=== PATIENT | female | born 1955 | race Hispanic/Latino ===

== ENCOUNTER 2016-12-11 08:59 | Day surgery (SDC) | payer BC ==
[2016-12-11] MEDS ORDERED: Sodium Chloride 0.9% 1,000 ML IV ONE (09:36)
--- NOTE | 2016-12-11 09:47 | C.PDOC ---
History Of Present Illness <Alda Hdz - Last Filed: 12/11/16 12:00> <Bina Vigil - Last Filed: 12/11/16 15:44> 61 y/o female with PMHx of HTN and HLD sent to ED by Dr. Richardson for pre-op labs. Patient is scheduled in OR today for hemorrhoids removal. At ED patient is complaining of hemorrhoids being painful last night and was unable to sleep.. Patient denies fever, chills, nausea or any other complaints at this time. (Alda Hdz) History Per: Patient History/Exam Limitations: no limitations Onset/Duration Of Symptoms: Days Current Symptoms Are (Timing): Still Present <Alda Hdz - Last Filed: 12/11/16 12:00> <Bina Vigil - Last Filed: 12/11/16 15:44> Time Seen by Provider: 12/11/16 09:08 Chief Complaint (Nursing): Medical Clearance Past Medical History Reviewed: Historical Data, Nursing Documentation, Vital Signs - Medical History PMH: Diverticulitis, Hiatal Hernia, HTN, Hypercholesterolemia Surgical History: No Surg Hx Family History: States: No Known Family Hx - Social History Hx Tobacco Use: No Hx Alcohol Use: Yes Hx Substance Use: No - Immunization History Hx Tetanus Toxoid Vaccination: No Hx Influenza Vaccination: No Hx Pneumococcal Vaccination: No <Alda Hdz - Last Filed: 12/11/16 12:00> Vital Signs: Last Vital Signs Temp 97.9 F 12/11/16 10:12 Pulse 72 12/11/16 10:12 Resp 18 12/11/16 10:12 BP 120/80 12/11/16 10:12 Pulse Ox 98 12/11/16 12:02 - [facility] Procedures NAIL REMOVAL (07/27/14) Review Of Systems Constitutional: Negative for: Fever, Chills Gastrointestinal: Positive for: Rectal Pain. Negative for: Nausea, Vomiting, Abdominal Pain Musculoskeletal: Negative for: Back Pain Skin: Negative for: Rash <Alda Hdz - Last Filed: 12/11/16 12:00> Physical Exam - Physical Exam Appears: Non-toxic, No Acute Distress Skin: Normal Color, Warm, Dry, No Rash Head: Atraumatic, Normacephalic Oral Mucosa: Moist Neck: Normal ROM, Supple Cardiovascular: Rhythm Regular Respiratory: Normal Breath Sounds, No Rales, No Rhonchi, No Wheezing Gastrointestinal/Abdominal: Soft, No Tenderness, No Guarding, No Rebound Rectal: Hemorrhoids (Large), Tenderness (to large hemorrhoids) Back: No CVA Tenderness Neurological/Psych: Oriented x3 <Alda Hdz - Last Filed: 12/11/16 12:00> ED Course And Treatment - Laboratory Results Result Diagrams: 12/11/16 09:58 12/11/16 09:58 Lab Interpretation: Normal ECG: Interpreted By Me ECG Rhythm: Sinus Rhythm ECG Interpretation: Normal Rate From EC O2 Sat by Pulse Oximetry: 98 (RA) Pulse Ox Interpretation: Normal - Radiology CXR: Interpreted by Md CXR Interpretation: Yes: No Acute Disease Progress Note: Treated with IVF NSS. Case discussed with Dr Flores who requests admission Reassessment Condition: Unchanged - Physician Consult Information Physician Contacted: Manpreet Richardson Outcome Of Conversation: admit to OR <Alda Hdz - Last Filed: 12/11/16 12:00> - Laboratory Results Result Diagrams: 12/11/16 09:58 12/11/16 09:58 <Bina Vigil - Last Filed: 12/11/16 15:44> Medical Decision Making <Alda Hdz - Last Filed: 12/11/16 12:00> <Bina Vigil - Last Filed: 12/11/16 15:44> Medical Decision Making: Plan: Pre-op labs (Alda Hdz) Disposition - Disposition Disposition Time: 11:00 - POA Present On Arrival: None <Alda Hdz - Last Filed: 12/11/16 12:00> <Bina Vigil - Last Filed: 12/11/16 15:44> - Disposition Disposition: HOSPITALIZED Condition: STABLE - Clinical Impression Clinical Impression: Hemorrhoids, external, thrombosed - PA / TREKKING GUIDE / Resident Statement MD/DO has reviewed & agrees with the documentation as recorded. - Scribe Statement The provider has reviewed the documentation as recorded by the Scribe <Alda Hdz - Last Filed: 12/11/16 12:00> <Bina Vigil - Last Filed: 12/11/16 15:44> - Scribe Statement Yadira Schwartz All medical record entries made by the Scribe were at my direction and personally dictated by me. I have reviewed the chart and agree that the record accurately reflects my personal performance of the history, physical exam, medical decision making, and the department course for this patient. I have also personally directed, reviewed, and agree with the discharge instructions and disposition. (Alda Hdz) Decision To Admit - Pt Status Changed To: Hospital Disposition Of: SDS- Endo,OR,Cath,IR - . Bed Request Type: Same Day Surgery Admitting Physician: Manpreet Richardson <Alda Hdz - Last Filed: 12/11/16 12:00> <Bina Vigil - Last Filed: 12/11/16 15:44> - . Patient Diagnosis: Hemorrhoids, external, thrombosed
[2016-12-11] MEDS ORDERED: Sodium Chloride 0.9% 1,000 ML ONE (09:56)
[2016-12-11 10:06] LABS: BASO % 0.5 % (0.0-2.0); EOS # 0.1 K/uL (0.0-0.7); EOS % 1.4 % (0.0-4.0); HEMATOCRIT 41.8 % (34.0-47.0); LYMPH # 2.5 K/uL (1.0-4.3); LYMPH % 29.7 % (20.0-40.0); MEAN CORPUSCULAR HGB CONC 34.1 g/dL (33.0-37.0); MEAN PLATELET VOLUME 8.2 fL (7.2-11.7); MONO # 0.8 K/uL (0.0-0.8); MONO % 9.5 % (0.0-10.0); WHITE BLOOD COUNT 8.4 K/uL (4.8-10.8)
[2016-12-11 10:21] LABS: CHLORIDE 102 mmol/L (98-107); POTASSIUM 3.4 mmol/L (3.6-5.2); SODIUM 136 mmol/L (132-148)
[2016-12-11 10:23] LABS: GFR AFRICAN-AMERICAN > 60
[2016-12-11 10:24] LABS: ALB/GLOB RATIO 1.3 (1.0-2.1); ALKALINE PHOSPHATASE 71 U/L (38-126); ALT/SGPT 23 U/L (9-52); AST/SGOT 23 U/L (14-36); BILIRUBIN,TOTAL 0.8 mg/dL (0.2-1.3); BLOOD UREA NITROGEN 15 mg/dL (7-17); CALCIUM 9.6 mg/dl (8.6-10.4); CARBON DIOXIDE 22 mmol/L (22-30); GLUCOSE,RANDOM 102 mg/dL (65-105); TOTAL PROTEIN 7.9 g/dL (6.3-8.3)
--- NOTE | 2016-12-11 10:24 | RAD ---
HISTORY: SOB COMPARISON: Chest x-ray portion of obstructive series performed 10/10/13 TECHNIQUE: Chest PA and lateral FINDINGS: Examination limited by habitus. LUNGS: Biapical pleural thickening. Mild left basilar atelectasis/ infiltrates. Subsegmental right basilar atelectasis. Please note that chest x-ray has limited sensitivity for the detection of pulmonary masses. PLEURA: No significant pleural effusion identified. No definite pneumothorax . CARDIOVASCULAR: Heart size appears top normal. Atherosclerotic calcifications of the aorta. OSSEOUS STRUCTURES: Degenerative changes. VISUALIZED UPPER ABDOMEN: Unremarkable. OTHER FINDINGS: None. IMPRESSION: Biapical pleural thickening. Mild left basilar atelectasis/ infiltrates. Subsegmental right basilar atelectasis.
[2016-12-11 13:45] LABS: RBC URINE 9 /hpf (0-3); URINE BACTERIA RARE (<OCC); URINE BILIRUBIN NEGATIVE (NEGATIVE); URINE BLOOD 1+ (NEGATIVE); URINE COLOR Yellow (YELLOW); URINE GLUCOSE (UA) NORMAL (Normal); URINE KETONE TRACE mg/dL (NEGATIVE); URINE LEUKOCYTE ESTERASE 1+ Leu/uL (Negative); URINE PROTEIN NEGATIVE (NEGATIVE); URINE UROBILINOGEN NORMAL mg/dL (0.2-1.0); WBC URINE 12 /hpf (0-5)
--- NOTE | 2016-12-11 14:01 | CP.PCM.HP ---
<MusaBina - Last Filed: 12/11/16 14:59> Present on Admission - Present on Admission Any Indicators Present on Admission: No Meds Allergies/Adverse Reactions: Allergies Allergy/AdvReac Type Severity Reaction Status Date / Time ciprofloxacin [From Cipro] Allergy Verified 12/11/16 09:02 Results - Vital Signs Recent Vital Signs: Last Vital Signs Temp 97.9 F 12/11/16 10:12 Pulse 72 12/11/16 10:12 Resp 18 12/11/16 10:12 BP 120/80 12/11/16 10:12 Pulse Ox 98 12/11/16 12:02 - Labs Result Diagrams: 12/11/16 09:58 12/11/16 09:58 Labs: Laboratory Results - last 24 hr 12/11/16 12/11/16 12/11/16 09:58 09:58 09:58 WBC 8.4 RBC 4.92 Hgb 14.3 Hct 41.8 MCV 85.0 MCH 29.0 MCHC 34.1 RDW 14.0 Plt Count 272 MPV 8.2 Neut % (Auto) 58.9 Lymph % (Auto) 29.7 Ford % (Auto) 9.5 Eos % (Auto) 1.4 Baso % (Auto) 0.5 Neut # 4.9 Lymph # 2.5 Ford # 0.8 Eos # 0.1 Baso # 0.0 PT 11.0 INR 1.0 Sodium 136 Potassium 3.4 L Chloride 102 Carbon Dioxide 22 Anion Gap 15 BUN 15 Creatinine 0.7 Est GFR ( Amer) > 60 Est GFR (Non-Af Amer) > 60 Random Glucose 102 Calcium 9.6 Total Bilirubin 0.8 AST 23 ALT 23 Alkaline Phosphatase 71 Total Protein 7.9 Albumin 4.5 Globulin 3.4 Albumin/Globulin Ratio 1.3 Urine Color Urine Clarity Urine pH Ur Specific [place] Urine Protein Urine Glucose (UA) Urine Ketones Urine Blood Urine Nitrate Urine Bilirubin Urine Urobilinogen Ur Leukocyte Esterase Urine WBC (Auto) Urine RBC (Auto) Ur Squamous Epith Cells Urine Bacteria Blood Type Antibody Screen 12/11/16 12/11/16 09:58 13:10 WBC RBC Hgb Hct MCV MCH MCHC RDW Plt Count MPV Neut % (Auto) Lymph % (Auto) Ford % (Auto) Eos % (Auto) Baso % (Auto) Neut # Lymph # Ford # Eos # Baso # PT INR Sodium Potassium Chloride Carbon Dioxide Anion Gap BUN Creatinine Est GFR ( Amer) Est GFR (Non-Af Amer) Random Glucose Calcium Total Bilirubin AST ALT Alkaline Phosphatase Total Protein Albumin Globulin Albumin/Globulin Ratio Urine Color Yellow Urine Clarity Hazy Urine pH 5.0 Ur Specific [place] 1.016 Urine Protein Negative Urine Glucose (UA) Normal Urine Ketones Trace Urine Blood 1+ H Urine Nitrate Negative Urine Bilirubin Negative Urine Urobilinogen Normal Ur Leukocyte Esterase 1+ H Urine WBC (Auto) 12 H Urine RBC (Auto) 9 H Ur Squamous Epith Cells 1 Urine Bacteria Rare Blood Type B POSITIVE Antibody Screen Negative Decision To Admit - Pt Status Changed To: Hospital Disposition Of: SDS- Endo,OR,Cath,IR - . Bed Request Type: Regular <Sheila Moise - Last Filed: 12/11/16 15:23> History of Present Illness - History of Present Illness History of Present Illness: "CC: my hemorrhoids are throbbing" HPI: Patient is a 61 year old Female with pmhx of HTN, HLD, diverticulitis who presents today for painful hemorrhoids. Patient says she was told she had internal and external hemorrhoids about 4 years ago when she had a colonoscopy, but had no complaints until this past week. On Friday patient started to have a lot of throbbing and pain from her hemorrhoids. She also noticed some bright red blood on the toilet paper after her bowel movements. She went to the ED Friday morning at [facility] [place] where she was given some cream and told to follow up with her primary doctor. She called her primary, Dr. Carr who gave her Dr. Richardson's information. Patient went for an appointment with Dr. Richardson yesterday. Patient was instructed to take sitz baths and use a stool softener and if no relief have a hemorrhoidectomy next week. Patient was having severe discomfort (10/) overnight and contacted Dr. Richardson who told her to come in for the hemorrhoidectomy today. Currently patient says she is still having some pain/ discomfort. Patient denies any chills, fevers, headache, shortness of breath, chest pain, abdominal pain, or urinary frequency/ dysuria. PMD: Dr. Carr PMhx: HTN, HLD, Diverticulitis Psurg: L ankle surgery ~ 2011; 30 years ago Social: no tobacco or drugs, drinks about 1 alcoholic drink per week Allergies: cipro- hallucinations Famhx: mom: heart disease, HTN; sister: from lung CA; father: emphysema Home Meds: unknown doses of simvastatin, nexium, ACEI for her htn, fish oil, probiotic Review of Systems - Constitutional Constitutional: absent: Chills, Fever, Headache - EENT Eyes: absent: Blurred Vision Nose/Mouth/Throat: absent: Sore Throat - Cardiovascular Cardiovascular: absent: Chest Pain, Claudication, Dyspnea, Edema, Palpitations - Respiratory Respiratory: absent: Cough - Gastrointestinal Gastrointestinal: Hematochezia, Loose Stools. absent: Abdominal Pain, Constipation - Genitourinary Genitourinary: absent: Difficulty Urinating - Musculoskeletal Musculoskeletal: absent: Muscle Weakness - Neurological Neurological: absent: Dizziness, Headaches - Hematologic/Lymphatic Hematologic: absent: Easy Bleeding, Easy Bruising Past Patient History - Past Social History Smoking Status: Never Smoked - CARDIAC Hx Hypercholesterolemia: Yes Hx Hypertension: Yes - GASTROINTESTINAL Hx Diverticulitis: Yes - PSYCHIATRIC Hx Substance Use: No - SURGICAL HISTORY Hx Surgeries: Yes Hx Orthopedic Surgery: Yes (ANKLE SX) - ANESTHESIA Hx Anesthesia: Yes Hx Anesthesia Reactions: No Physical Exam - Constitutional Appears: Non-toxic, No Acute Distress - Head Exam Head Exam: ATRAUMATIC, NORMAL INSPECTION, NORMOCEPHALIC - Eye Exam Eye Exam: EOMI, Normal appearance - ENT Exam ENT Exam: Mucous Membranes Moist - Respiratory Exam Respiratory Exam: Clear to Auscultation Bilateral, NORMAL BREATHING PATTERN. absent: Respiratory Distress - Cardiovascular Exam Cardiovascular Exam: REGULAR RHYTHM, +S1, +S2 - GI/Abdominal Exam GI & Abdominal Exam: Normal Bowel Sounds, Soft. absent: Distended, Firm, Tenderness - Extremities Exam Extremities exam: Positive for: normal inspection. Negative for: pedal edema, tenderness - Neurological Exam Neurological exam: Alert, Oriented x3 - Psychiatric Exam Psychiatric exam: Normal Affect, Normal Mood - Skin Skin Exam: Intact, Normal Color, Warm Results - Vital Signs Recent Vital Signs: Last Vital Signs Temp 97.9 F 12/11/16 10:12 Pulse 72 12/11/16 10:12 Resp 18 12/11/16 10:12 BP 120/80 12/11/16 10:12 Pulse Ox 98 12/11/16 12:02 - Labs Result Diagrams: 12/11/16 09:58 12/11/16 09:58 Labs: Laboratory Results - last 24 hr 12/11/16 12/11/16 12/11/16 09:58 09:58 09:58 WBC 8.4 RBC 4.92 Hgb 14.3 Hct 41.8 MCV 85.0 MCH 29.0 MCHC 34.1 RDW 14.0 Plt Count 272 MPV 8.2 Neut % (Auto) 58.9 Lymph % (Auto) 29.7 Ford % (Auto) 9.5 Eos % (Auto) 1.4 Baso % (Auto) 0.5 Neut # 4.9 Lymph # 2.5 Ford # 0.8 Eos # 0.1 Baso # 0.0 PT 11.0 INR 1.0 Sodium 136 Potassium 3.4 L Chloride 102 Carbon Dioxide 22 Anion Gap 15 BUN 15 Creatinine 0.7 Est GFR ( Amer) > 60 Est GFR (Non-Af Amer) > 60 Random Glucose 102 Calcium 9.6 Total Bilirubin 0.8 AST 23 ALT 23 Alkaline Phosphatase 71 Total Protein 7.9 Albumin 4.5 Globulin 3.4 Albumin/Globulin Ratio 1.3 Urine Color Urine Clarity Urine pH Ur Specific [place] Urine Protein Urine Glucose (UA) Urine Ketones Urine Blood Urine Nitrate Urine Bilirubin Urine Urobilinogen Ur Leukocyte Esterase Urine WBC (Auto) Urine RBC (Auto) Ur Squamous Epith Cells Urine Bacteria Blood Type Antibody Screen 12/11/16 12/11/16 09:58 13:10 WBC RBC Hgb Hct MCV MCH MCHC RDW Plt Count MPV Neut % (Auto) Lymph % (Auto) Ford % (Auto) Eos % (Auto) Baso % (Auto) Neut # Lymph # Ford # Eos # Baso # PT INR Sodium Potassium Chloride Carbon Dioxide Anion Gap BUN Creatinine Est GFR ( Amer) Est GFR (Non-Af Amer) Random Glucose Calcium Total Bilirubin AST ALT Alkaline Phosphatase Total Protein Albumin Globulin Albumin/Globulin Ratio Urine Color Yellow Urine Clarity Hazy Urine pH 5.0 Ur Specific [place] 1.016 Urine Protein Negative Urine Glucose (UA) Normal Urine Ketones Trace Urine Blood 1+ H Urine Nitrate Negative Urine Bilirubin Negative Urine Urobilinogen Normal Ur Leukocyte Esterase 1+ H Urine WBC (Auto) 12 H Urine RBC (Auto) 9 H Ur Squamous Epith Cells 1 Urine Bacteria Rare Blood Type B POSITIVE Antibody Screen Negative Assessment & Plan - Assessment and Plan (Free Text) Assessment: 61 y/o female with pmhx of HTN, HLD, diverticulitis presents for hemorrhoidectomy Plan: -OR today 12/[address] Richardson -NPO case discussed with Dr. Richardson <Manpreet Richardson - Last Filed: 12/12/16 21:11> Results - Vital Signs Recent Vital Signs: Last Vital Signs Temp 98.2 F 12/12/16 15:14 Pulse 77 12/12/16 15:14 Resp 20 12/12/16 15:14 BP 115/65 12/12/16 15:14 Pulse Ox 96 12/12/16 15:14 - Labs Result Diagrams: 12/11/16 09:58 12/11/16 09:58 Attending/Attestation - Attestation I have personally seen and examined this patient.: Yes I have fully participated in the care of the patient.: Yes I have reviewed all pertinent clinical information: Yes Notes (Text): 12/12/16 21:10 Pt was seen and examined at bedside Agree with above note and assessment Pt with prolapsed hemorrhoid with thrombosis and ulceration OR for Hemorrhoidectomy Consent NPO, IVF Plan d.w pt in detail Risk and benefit explained in detail.
[2016-12-11] MEDS ORDERED: Midazolam 2 MG/2 ML VIAL ONE (16:25)
[2016-12-11] MEDS ORDERED: Rocuronium 10 mg/ml (5 ml) ONE (16:26)
[2016-12-11] MEDS ORDERED: Succinylcholine Chloride 20 mg/ml Syr (5 ml) IV ONE (16:26)
[2016-12-11] MEDS ORDERED: Propofol 10 mg/ml Inj (20 ML) ONE (16:28)
[2016-12-11] MEDS ORDERED: Lactated Ringer's 1,000 ML IV ONE ×2 (17:00→19:00)
[2016-12-11] MEDS ORDERED: metroNIDAZOLE IV 500 mg/100 ml 500 MG/100 ML BAG ONE (17:11)
[2016-12-11] MEDS ORDERED: Bupivacaine-Epi 0.25%-1:200,000 PF Inj ONE (17:11)
[2016-12-11] MEDS ORDERED: Lidocaine 1% Inj (20ml) ONE (17:11)
[2016-12-11] MEDS ORDERED: ceFAZolin IV 2 gm in Dextrose 1 GM/50 ML BAG IVPB ONE (17:11)
[2016-12-11] MEDS: HYDROmorphone 0.5 mg/0.5 ml ISec IVP PRN ×2 (17:27→17:57)
[2016-12-11] MEDS ORDERED: Neostigmine Methylsulfate 3mg/3ml Syringe IV ONE (17:42)
--- NOTE | 2016-12-11 18:24 | PCM.SURG1 ---
Surgeon's Initial Post Op Note - Surgeon's Notes Surgeon: Dr. Richardson Ip Litigation Associate: Dr. Joaquin PGY2, Dean Olivia OMS3 Type of Anesthesia: General Endo Pre-Operative Diagnosis: prolasped and thrombosed internal and external hemorrhoids Operative Findings: see dictation Post-Operative Diagnosis: same Operation Performed: 2 column internal and external hemorrhoidectomy and posterior flap repair Specimen/Specimens Removed: hemorrhoids Estimated Blood Loss: EBL {In ML}: 20 Drains Used: No Drains Post-Op Condition: Good Date of Surgery/Procedure: 12/11/16 Time of Surgery/Procedure: 17:00
[2016-12-11] MEDS ORDERED: Oxycodone/Acetaminophen 5/325 mg Tab PO PRN (19:16)
[2016-12-11] MEDS ORDERED: HYDROmorphone 0.5 mg/0.5 ml ISec IVP PRN (19:49)
[2016-12-11 20:59] VITALS: RESP 20
[2016-12-11] MEDS: Morphine 4 MG/ML VIAL IVP PRN (23:32)
[2016-12-12] MEDS: Morphine 4 MG/ML VIAL IVP PRN ×3 (04:07→15:07)
[2016-12-12 09:17] VITALS: O2SAT 96
[2016-12-12] MEDS ORDERED: Bisoprolol-HCTZ 10-6.25 mg Tab PO SCH (10:00)
[2016-12-12] MEDS ORDERED: Pantoprazole 40 mg EC Tab PO SCH (10:00)
--- NOTE | 2016-12-12 13:01 | CP.PCM.PN ---
<Otis Swan - Last Filed: 12/12/16 16:49> Subjective - Date & Time of Evaluation Date of Evaluation: 12/12/16 Time of Evaluation: 10:00 - Subjective Subjective: General Surgery Note for Dr. Richardson Patient seen and examined at bedside. No acute event overnight. Patient is s/p hemorrhoidectomy and posterior flap repair POD#1. Patient complaining of rectal pain. she is tolerating diet. Objective - Vital Signs/Intake and Output Vital Signs (last 24 hours): Temp Pulse Resp BP Pulse Ox 98.5 F 98 H 20 110/71 96 12/12/16 10:16 12/12/16 10:16 12/12/16 10:16 12/12/16 10:16 12/12/16 10:16 Intake and Output: 12/12/16 12/12/16 06:59 18:59 Intake Total 1500 Output Total 50 Balance 1450 - Medications Medications: Current Medications Acetaminophen (Tylenol 325mg Tab) 650 mg PO Q6 PRN PRN Reason: Pain, Mild (1-3) Bisoprolol Fumarate/HCTZ (Ziac 10-6.25 Mg) 1 tab PO DAILY [facility] Last Admin: 12/12/16 10:17 Dose: 1 tab Docusate Sodium (Colace) 100 mg PO TID [facility] Last Admin: 12/12/16 10:17 Dose: 100 mg Hydromorphone HCl (Dilaudid) 0.5 mg IVP Q15MIN PRN PRN Reason: Pain, moderate (4-7) Last Admin: 12/11/16 19:25 Dose: 0.5 mg Lactulose (Enulose) 20 gm PO TID [facility] Last Admin: 12/12/16 10:17 Dose: 20 gm Morphine Sulfate (Morphine) 4 mg IVP Q4 PRN PRN Reason: Pain, severe (8-10) Last Admin: 12/12/16 08:10 Dose: 4 mg Ondansetron HCl (Zofran Inj) 4 mg IVP Q4 PRN PRN Reason: Nausea/Vomiting Oxycodone/Acetaminophen (Percocet 5/325 Mg Tab) 1 tab PO Q4H PRN PRN Reason: Pain, moderate (4-7) Stop: 12/14/16 19:17 Pantoprazole Sodium (Protonix Ec Tab) 40 mg PO DAILY [facility] Last Admin: 12/12/16 10:17 Dose: 40 mg Rosuvastatin Calcium (Crestor) 5 mg PO HS [facility] Last Admin: 12/11/16 22:52 Dose: 5 mg - Labs Labs: 12/11/16 09:58 12/11/16 09:58 PT 11.0 SECONDS (9.7-12.2) 12/11/16 09:58 INR 1.0 12/11/16 09:58 - Constitutional Appears: No Acute Distress - Head Exam Head Exam: ATRAUMATIC, NORMOCEPHALIC - Eye Exam Eye Exam: Normal appearance - ENT Exam ENT Exam: Mucous Membranes Moist - Respiratory Exam Respiratory Exam: NORMAL BREATHING PATTERN - Cardiovascular Exam Cardiovascular Exam: REGULAR RHYTHM - GI/Abdominal Exam GI & Abdominal Exam: Soft. absent: Tenderness - Rectal Exam Additional comments: packing removed one hemorrhoid remaining on third column - Extremities Exam Extremities Exam: Normal Capillary Refill - Neurological Exam Neurological Exam: Alert, Awake, CN II-XII Intact, Oriented x3. absent: Abnormal Gait - Psychiatric Exam Psychiatric exam: Normal Affect, Normal Mood - Skin Skin Exam: Dry, Normal Color, Warm Assessment and Plan - Assessment and Plan (Free Text) Plan: 61 F s/p hemorrhoidectomy and posterior flap repair POD#1 -OOB, Ambulation, IS -Analgesics PRN -High fiber diet and stool softners -Will DW Dr. Dylan Swan PGY1 <Manpreet Richardson - Last Filed: 12/12/16 21:15> Objective - Vital Signs/Intake and Output Vital Signs (last 24 hours): Temp Pulse Resp BP Pulse Ox 98.2 F 77 20 115/65 96 12/12/16 15:14 12/12/16 15:14 12/12/16 15:14 12/12/16 15:14 12/12/16 15:14 Intake and Output: 12/12/16 12/13/16 18:59 06:59 Intake Total 500 Balance 500 - Labs Labs: 12/11/16 09:58 12/11/16 09:58 PT 11.0 SECONDS (9.7-12.2) 12/11/16 09:58 INR 1.0 12/11/16 09:58 Attending/Attestation - Attestation I have personally seen and examined this patient.: Yes I have fully participated in the care of the patient.: Yes I have reviewed all pertinent clinical information, including history, physical exam and plan: Yes Notes (Text): 12/12/16 21:14 Pt was seen and examined at bedside Agree with above note and assessment Pt can be DC home Po analgesics Stool softner f.u as out pt Plan d.w pt in detail
[2016-12-12] MEDS ORDERED: Magnesium Hydroxide Susp 30 ml UD PO ONE (14:30)
[2016-12-12 16:16] VITALS: BP 115/65; PULSE 77; TEMP 98.2
--- NOTE | 2016-12-12 18:22 | CARD ---
APPROVED REPORT EKG Measurement Heart [id number] <Conclusion> Normal sinus rhythm Minimal voltage criteria for LVH, may be normal variant Borderline ECG
--- NOTE | 2016-12-13 05:39 | OP ---
PROCEDURE DATE: 12/11/2016 PREOPERATIVE DIAGNOSES: 1. Grade 4 prolapse hemorrhoids all 4 column. 2. Severe rectal pain. PROCEDURE DONE: 1. Two column hemorrhoidectomy. 2. Advancement rectal flap. SURGEON: Dr. Richardson. TECHNICAL SERVICE SPECIALIST: Evelyn Joaquin, PGY-2 resident. TYPE OF ANESTHESIA: General endotracheal tube anesthesia. ESTIMATED BLOOD LOSS: Around 50 mL. DRAINS: None. PATHOLOGY: The 2 column of thrombosed prolapsed external and internal hemorrhoid was sent for the pathology. COMPLICATIONS: None. INTRAOPERATIVE FINDINGS: The patient had a prolapsed all 4 column of internal and external hemorrhoids and there were extensive thrombosis ulceration and edema of left lateral side as well as right anterior side was present and on intraoperative step, this 61-year-old female who was diagnosed with prolapsed thrombosed hemorrhoids of all 4 column and the patient was consented for hemorrhoidectomy. DESCRIPTION OF PROCEDURE: The patient was brought to the OR, placed supine on the stretcher. After induction of anesthesia, the patient was placed in prone position and butt cheek was with the tape and the rectal area was prepped and draped in the usual sterile fashion. The elliptical incision was made surrounding the whole left lateral as well as right anterior large hemorrhoids because there was extensive ulceration and loss of mucosa and skin. After incising, the mucocutaneous junction, the internal sphincter was identified and both hemorrhoids was ligated and pedicle was securely ligated and after that rectal mucosa was from underlying muscle and mucosal advancement flap was done to cover the large defect and multiple 2-0 Vicryl suture was done from the mucosa to internal sphincter to the skin and after proper closure of the wound with advancement flap, the right posterior large hemorrhoid was soft and it was left as it is to prevent the anal stenosis and after that the Surgicel packing was placed and dry sterile dressing was applied. The patient tolerated the procedure well. Count of the instruments and gauze was correct. There was no apparent complication. The patient was extubated in the OR, sent to the postanesthesia care unit in stable condition. Manpreet Richardson MD MTDD
== END 2016-12-12 16:58 | disposition home or self-care (01) ==
LOC: C.ER 08:59 → C.6T 09:47 → C.SDS 09:47
PROVIDERS: ATTEND Surgery Surgical Critical Care
DX: K64.3 Fourth degree hemorrhoids (principal); I10 Essential (primary) hypertension; E78.5 Hyperlipidemia, unspecified; Z87.19 Personal history of other diseases of the digestive system; Z01.818 Encounter for other preprocedural examination

== ENCOUNTER 2018-07-15 16:38 | Emergency (ER) | payer BC ==
[2018-07-15 16:41] VITALS: BMI 29.2
[2018-07-15 16:43] VITALS: RESP 18
[2018-07-15] MEDS ORDERED: Iohexol 240 (50 ml) PO STA (17:11)
[2018-07-15 17:23] LABS: SQUAMOUS EPITHIAL 3 /hpf (0-5); URINE BACTERIA OCC (<OCC); URINE BILIRUBIN NEGATIVE (NEGATIVE); URINE BLOOD NEGATIVE (NEGATIVE); URINE CLARITY Clear (Clear); URINE COLOR Yellow (YELLOW); URINE GLUCOSE (UA) NORMAL (Normal); URINE LEUKOCYTE ESTERASE TRACE Leu/uL (Negative); URINE PROTEIN NEGATIVE (NEGATIVE); URINE UROBILINOGEN NORMAL mg/dL (0.2-1.0)
[2018-07-15] MEDS ORDERED: Iohexol 240 (50 ml) ONE (17:54)
[2018-07-15 17:58] LABS: BASO # 0.1 K/uL (0.0-0.2); BASO % 0.9 % (0.0-2.0); EOS # 0.1 K/uL (0.0-0.7); EOS % 1.9 % (0.0-4.0); HEMOGLOBIN 13.9 g/dL (11.0-16.0); LYMPH # 2.5 K/uL (1.0-4.3); LYMPH % 36.3 % (20.0-40.0); MEAN CELL VOLUME 84.2 fL (81.0-99.0); MEAN CORPUSCULAR HGB CONC 33.3 g/dL (33.0-37.0); MEAN PLATELET VOLUME 7.7 fL (7.2-11.7); MONO # 0.5 K/uL (0.0-0.8); MONO % 7.2 % (0.0-10.0); NEUT # 3.7 K/uL (1.8-7.0); NEUT % 53.7 % (50.0-75.0); NRBC % 0.1 % (0.0-2.0); RBC 4.95 Mil/uL (3.80-5.20); WHITE BLOOD COUNT 6.9 K/uL (4.8-10.8)
[2018-07-15 18:09] LABS: ALB/GLOB RATIO 1.3 (1.0-2.1); ALBUMIN 4.5 g/dL (3.5-5.0); ALT/SGPT 34 U/L (9-52); AST/SGOT 32 U/L (14-36); BLOOD UREA NITROGEN 20 mg/dL (7-17); GFR NON-AFRICAN AMERICAN > 60
[2018-07-15 19:20] LABS: SQUAMOUS EPITHIAL 2 /hpf (0-5); URINE BACTERIA OCC (<OCC); URINE BILIRUBIN NEGATIVE (NEGATIVE); URINE BLOOD NEGATIVE (NEGATIVE); URINE CLARITY Hazy (Clear); URINE COLOR Yellow (YELLOW); URINE GLUCOSE (UA) NORMAL (Normal); URINE LEUKOCYTE ESTERASE TRACE Leu/uL (Negative); URINE PROTEIN NEGATIVE (NEGATIVE); URINE UROBILINOGEN NORMAL mg/dL (0.2-1.0)
[2018-07-15] MEDS ORDERED: Iodixanol 320 MG/ML 100 ML BOTTLE IV ONE (19:22)
--- NOTE | 2018-07-15 21:27 | C.PDOC ---
History Of Present Illness 63 y/o female presents to ED complaining of a 1 month history of lower abdominal pressure and pain. Patient was treated for UTI on 06/15/18 with Macrobid and reports no improvement of symptoms. Patient has history of diverticulitis. Denies dysuria, hematuria, nausea, vomiting, diarrhea, fever chills, chest pain, or SOB. Time Seen by Provider: 07/15/18 16:45 Chief Complaint (Nursing): Female Genitourinary History Per: Patient History/Exam Limitations: no limitations Onset/Duration Of Symptoms: Days Current Symptoms Are (Timing): Still Present Past Medical History Reviewed: Historical Data, Nursing Documentation, Vital Signs Vital Signs: Last Vital Signs Temp 98.5 F 07/15/18 19:45 Pulse 86 07/15/18 19:45 Resp 18 07/15/18 19:45 BP 130/75 07/15/18 19:45 Pulse Ox 98 07/15/18 19:45 Primary Care Provider: Quynh Carr - Medical History PMH: Diverticulitis, Hiatal Hernia, HTN, Hypercholesterolemia - [facility] Procedures NAIL REMOVAL (07/27/14) Family History: States: No Known Family Hx - Social History Hx Tobacco Use: No Hx Alcohol Use: No Hx Substance Use: No - Immunization History Hx Tetanus Toxoid Vaccination: No Hx Influenza Vaccination: No Hx Pneumococcal Vaccination: No Review Of Systems Except As Marked, All Systems Reviewed And Found Negative. Constitutional: Negative for: Fever, Chills Cardiovascular: Negative for: Chest Pain Respiratory: Negative for: Shortness of Breath Gastrointestinal: Positive for: Abdominal Pain (lower abdomen). Negative for: Nausea, Vomiting, Diarrhea Genitourinary: Negative for: Dysuria, Hematuria ED Course And Treatment - Laboratory Results Result Diagrams: 07/15/18 17:54 07/15/18 17:54 Lab Results: Total Bilirubin 0.5 mg/dL (0.2-1.3) 07/15/18 17:54 AST 32 U/L (14-36) 07/15/18 17:54 ALT 34 U/L (9-52) 07/15/18 17:54 Alkaline Phosphatase 84 U/L (38-126) 07/15/18 17:54 Total Protein 7.8 g/dL (6.3-8.3) 07/15/18 17:54 Albumin 4.5 g/dL (3.5-5.0) 07/15/18 17:54 Globulin 3.4 gm/dL (2.2-3.9) 07/15/18 17:54 Albumin/Globulin Ratio 1.3 (1.0-2.1) 07/15/18 17:54 Urine Color Yellow (YELLOW) 07/15/18 19:09 Urine Clarity Hazy (Clear) 07/15/18 19:09 Urine pH 5.0 (5.0-8.0) 07/15/18 19:09 Ur Specific [place] 1.018 (1.003-1.030) 07/15/18 19:09 Urine Protein Negative mg/dL (NEGATIVE) 07/15/18 19:09 Urine Glucose (UA) Normal mg/dL (Normal) 07/15/18 19:09 Urine Ketones Negative mg/dL (NEGATIVE) 07/15/18 19:09 Urine Blood Negative (NEGATIVE) 07/15/18 19:09 Urine Nitrate Negative (NEGATIVE) 07/15/18 19:09 Urine Bilirubin Negative (NEGATIVE) 07/15/18 19:09 Urine Urobilinogen Normal mg/dL (0.2-1.0) 07/15/18 19:09 Ur Leukocyte Esterase Trace Taylor/uL (Negative) 07/15/18 19:09 Urine WBC (Auto) 5 /hpf (0-5) 07/15/18 19:09 Urine RBC (Auto) 2 /hpf (0-3) 07/15/18 19:09 Ur Squamous Epith Cells 2 /hpf (0-5) 07/15/18 19:09 Urine Bacteria Occ (<OCC) H 07/15/18 19:09 O2 Sat by Pulse Oximetry: 98 (RA) Pulse Ox Interpretation: Normal - CT Scan/US Abd/pel CT Other Rad Studies (CT/US): Read By Radiologist, Radiology Report Reviewed CT/US Interpretation: FINDINGS: LUNG BASES: The lung bases appear clear. No pleural effusions are seen. LIVER: Unremarkable. GALLBLADDER AND BILE DUCTS: The gallbladder appears within normal limits. No radioopaque gallstones are seen. No biliary ductal dilatation is evident. PANCREAS: Unremarkable. SPLEEN: Unremarkable. ADRENAL GLANDS: Unremarkable. KIDNEYS, URETERS, AND BLADDER: The kidneys appear within normal limits. There is no hydronephrosis or hydroureter. No urinary calculi are seen. The urinary bladder appeared normal in size and configuration. STOMACH AND BOWEL: The oral contrast agent is seen to have completely traversed the gastrointestinal tract. Unremarkable appearance of the stomach. No evidence of bowel obstruction. No evidence suggesting enteritis. There is diverticulosis coli seen within the sigmoid colon. There is associated mucosal wall thickening involving all segments of small bowel, colon and rectum. APPENDIX: No evidence of acute appendicitis on CT examination. PERITONEUM: No free fluid. No free air. LYMPH NODES: No lymphadenopathy is evident. REPRODUCTIVE: Unremarkable as visualized. VASCULATURE: No evidence of abdominal aortic aneurysm. BONES: No aggressive appearing osseous lesion. No acute osseous pathology evident. There is evidence of advanced degenerative disc disease at L2-3, L3-4, L4-5. IMPRESSION: 1. Enteritis, colitis and proctitis. Infectious and inflammatory etiologies are considered. 2. Diverticulosis coli seen in the sigmoid colon with no definite acute diverticulitis. Progress Note: Abd/Pel CT and labs ordered. CT shows colitis, proctitis, and diverticulosis. Patient afebrile without significant pain, labs normal, stable for outpatient treatment and follow up. Patient started on outpatient antibiotics. Patient will follow up with GI. Disposition Counseled Patient/Family Regarding: Studies Performed, Diagnosis, Need For Followup, Rx Given - Disposition Disposition: HOME/ ROUTINE Disposition Time: 21:22 Condition: STABLE Additional Instructions: You were seen in the ED for abdominal/pelvic discomfort. Your CT showed that you have inflammation of your colon. Please complete the prescribed course of antibiotics. Continue taking your probiotic. 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 Return to ED for worsening symptoms or if you develop fevers Prescriptions: Amoxicillin/Clavulanate [Augmentin 875 MG-125 MG] 1 tab PO Q8H #21 tab Instructions: Colitis, Diverticulosis (DC) Forms: [employer] (Japanese) - POA Present On Arrival: None - Clinical Impression Clinical Impression: Colitis - PA / DANDY TENDER / Resident Statement MD/DO has reviewed & agrees with the documentation as recorded. - Scribe Statement The provider has reviewed the documentation as recorded by the Madayibgordo Noonan All medical record entries made by the Poncho were at my direction and personally dictated by me. I have reviewed the chart and agree that the record accurately reflects my personal performance of the history, physical exam, medical decision making, and the department course for this patient. I have also personally directed, reviewed, and agree with the discharge instructions and disposition.
[2018-07-15 21:41] VITALS: BP 141/89; PULSE 69; TEMP 97.9; O2SAT 98
--- NOTE | 2018-07-16 08:37 | CT ---
Date of service: 07/15/2018 PROCEDURE: CT Abdomen and Pelvis with contrast HISTORY: abd pain COMPARISON: 03/09/2013 TECHNIQUE: Contrast dose: 100 mL Visipaque 320 Radiation dose: Total exam DLP = 990.05 mGy-cm. This CT exam was performed using one or more of the following dose reduction techniques: Automated exposure control, adjustment of the mA and/or kV according to patient size, and/or use of iterative reconstruction technique. FINDINGS: LOWER THORAX: Very small hiatal hernia. LIVER: Unremarkable. No gross lesion or ductal dilatation. GALLBLADDER AND BILE DUCTS: Unremarkable. PANCREAS: Unremarkable. No gross lesion or ductal dilatation. SPLEEN: Unremarkable. ADRENALS: Unremarkable. No mass. KIDNEYS AND URETERS: Unremarkable. No hydronephrosis. No solid mass. VASCULATURE: Unremarkable. No aortic aneurysm. There is atherosclerotic calcification of the abdominal aorta. BOWEL: Sigmoid diverticulosis without evidence of diverticulitis. No bowel obstruction. Mild circumferential mural thickening of the inferior rectum common nonspecific.. APPENDIX: Normal appendix. PERITONEUM: Unremarkable. No free fluid. No free air. LYMPH NODES: Unremarkable. No enlarged lymph nodes. BLADDER: Unremarkable. REPRODUCTIVE: Normal uterus BONES: Incidental hemangioma of the T10 vertebra. No acute fracture. Lumbar levoscoliosis. Multilevel degenerative disc disease in the lumbar spine. OTHER FINDINGS: None. IMPRESSION: Mild nonspecific proctitis involving the inferior rectum.. Sigmoid diverticulosis without evidence of diverticulitis. The preliminary findings for this examination were reported by [facility] at 8:56 p.m. on 07/15/2018. There is discordance of this report with the preliminary findings. There is no evidence of generalized colitis or enteritis.
== END 2018-07-15 21:41 | disposition home or self-care (01) ==
LOC: C.ER 16:38
DX: K52.9 Noninfective gastroenteritis and colitis, unspecified (principal); I10 Essential (primary) hypertension; E78.00 Pure hypercholesterolemia, unspecified
CPT/HCPCS: 74177; 80053; 81001; 85025; 99285; Q9966; Q9967